=== PATIENT | female | born 1930 | race Caucasian/White ===

== ENCOUNTER 2016-11-02 15:59 | Inpatient (IN) ==
[2016-11-02] MEDS ORDERED: NS 1,000 ML IV ONE (16:32)
--- NOTE | 2016-11-02 16:52 | Diag Imaging Result Doc PS360 ---
EXAM: HIP W/PELVIS BILAT 2 VIEWS - 11/02/2016 HISTORY: fall TECHNIQUE: Bilateral hips and pelvis three views COMPARISON: None. FINDINGS: There is fracture through the base of the right femoral neck with mild foreshortening and varus deformity. There is no other fracture or dislocation identified. IMPRESSION: Fracture through the base of right femoral neck. Electronically signed by Raffaele Maza 11/02/2016 4:50 PM
--- NOTE | 2016-11-02 16:54 | Diag Imaging Result Doc PS360 ---
EXAM: FEMUR MIN 2 VIEWS RIGHT - 11/02/2016 HISTORY: fall TECHNIQUE: Right femur two views COMPARISON: None. FINDINGS: This exam includes the mid and distal right femur. The proximal right femur is included as part of the bilateral hips and pelvis exam. There is no evidence of fracture at the mid and distal femur. There are mild atherosclerotic calcifications noted. IMPRESSION: No evidence of fracture of the mid or distal right femur. Please see report of bilateral hips and pelvis exam for evaluation of the proximal right femur. Electronically signed by Raffaele Maza 11/02/2016 4:52 PM
--- NOTE | 2016-11-02 16:56 | Diag Imaging Result Doc PS360 ---
EXAM: CHEST-1 VIEW - 11/02/2016 HISTORY: fx hip TECHNIQUE: AP supine chest COMPARISON: None. FINDINGS: Heart size is normal. There is an air-containing retrocardiac density compatible with medium size hiatal hernia. The lungs appear clear. There is no pleural effusion or pneumothorax identified. IMPRESSION: Hiatal hernia. No evidence of acute disease. Electronically signed by Raffaele Maza 11/02/2016 4:53 PM
[2016-11-02 17:25] LABS: BASO% 0.2 % (0.0-0.8); EOS# 0.02 X1000 (0.0-0.7); EOS% 0.2 % (0.0-10.0); HEMATOCRIT 36.2 % (37.0-47.0); HEMOGLOBIN 11.7 g/dL (12.0-16.0); IMM GRAN# 0.04 X1000 (0.0-0.04); IMM GRAN% 0.3 % (0.0-0.5); LYMPH# 0.84 X1000 (1.2-3.4); LYMPH% 6.5 % (20.5-51.1); MANUAL DIFF NEEDED? NO; MCHC 32.3 g/dL (33-37); MCV 83.6 FL (81-99); MONO# 0.56 X1000 (0.11-0.59); MONO% 4.3 % (1.7-9.3); MPV 9.4 FL (7.4-10.4); NEUT% 88.5 % (42.2-75.2); PLT 221 X1000 (130-400); RBC 4.33 XMIL (4.2-5.4)
[2016-11-02 17:33] LABS: INR 1.04; PROTIME 10.9 Seconds (9.2-11.7); PTT 27.3 Seconds (22.0-36.0)
[2016-11-02 17:43] LABS: AGAP 13; ALBUMIN 3.9 g/dL (3.5-5.0); ALKALINE PHOSPHATASE 51 U/L (32-104); BUN 7 mg/dL (8-22); CALCIUM 8.5 mg/dL (8.8-10.2); CHLORIDE 99 mmol/L (98-107); CK PROFILE 94 U/L (24-173); COSMO 269; GOT 16 U/L (10-30); GPT 7 U/L (10-36); POTASSIUM 3.8 mmol/L (3.5-5.1); SODIUM 135 mmol/L (136-145); TCO2 23 mmol/L (25-35); TOTAL BILIRUBIN 0.69 mg/dL (0.20-1.00); TOTAL PROTEIN 7.1 g/dL (6.3-8.3)
--- NOTE | 2016-11-02 17:56 | PROVIDER DOCUMENTATION ---
This chart was entered by Moni Samayoa Scribe, acting as scribe for Lillian Ballesteros MD. HPI-Musculoskeletal Pain/Inj - GENERAL Chief Complaint: Fall Stated Complaint: right hip and femur pain secondary to fall Time Seen by Provider: 11/02/16 16:09 Source: patient, family (daughter) - HX OF PRESENT ILLNESS-MUSKULOSKELTAL Nature of Presenting Problem: Pt is 86 y/o F presents to the ED with R hip and leg pain. Pt's daughter states Pt fell this am. Pt denies head injury and LOC. Quality of Pain: reports: aching Severity in ED: mild Onset/Duration: this morning Timing: still present Modifying Factors: improves with: nothing Any recent injury?: Yes (fall ) Locality of Occurance: Home Similar Symptoms Previously?: No Recently seen or treated by another doctor?: No - FALL INJURY Location of Pain/Injury: reports: other (R hip and leg) Pain Radiation: reports: no radiation Reason for Fall: reports: lost balance Symptoms prior to fall:: reports: none Loss of Consciousness: no loss of consciousness Injury Associated Symptoms: reports: unable to bear weight, trouble walking. denies: arm pain, back/neck pain, chest pain, diaphoresis, dizziness, headaches , joint pain, muscle aches, nausea, puncture wound, shortness of breath, sensory /motor loss, snap/crack/pop sensation, pain with inspiration, vomiting, weakness - HIP/PELVIS PAIN/INJURY Hip Pain Location: reports: hip (R) Pain Radiation: reports: lower legs (R), upper legs (R) Context / Method of Injury: reports: fall Associated Symptoms: reports: weakness in legs/feet (R). denies: loss of bladder control, loss of bowel control, lower back pain, muscle spasms, numbness in legs/feet, sensory/motor loss, tingling in legs/feet Review of Systems - Adult - REVIEW OF SYSTEMS - ADULT Constitutional: reports: no symptoms reported Eyes: reports: no symptoms reported Ears, Nose, Mouth & Throat: reports: no symptoms reported Cardiovascular: reports: no symptoms reported Respiratory: reports: no symptoms reported Gastrointestinal: reports: no symptoms reported Genitourinary: reports: no symptoms reported Musculoskeletal: reports: other (R hip and leg pain). denies: back pain, neck pain Integumentary: reports: no symptoms reported Neurological: reports: no symptoms reported Psychiatric: reports: no symptoms reported Endocrine: reports: no symptoms reported Hematologic/Lymphatic: reports: no symptoms reported Allergic/Immunologic: reports: no symptoms reported All Other Systems: Reviewed and Negative Past History - Adult - PAST MEDICAL HISTORY-ADULT Review of Records: reports: Nursing Assessment Review, Medications Reviewed, Social history reviewed & non-contributory. Major Childhood Illnesses: reports: denies history Cardiovascular: reports: denies history Respiratory: reports: denies history Gastrointestinal: reports: denies history Obstetrical/Gynecological: reports: denies history Genitourinary: reports: denies history Musculoskeletal: reports: denies history Neurological: reports: denies history Endocrine/Immune: reports: thyroid disorder Other Conditions: reports: denies history - PRIOR SURGERIES/PROCEDURES Surgical/Procedure History: reports: cholecystectomy - IMMUNIZATION STATUS Childhood Immunizations: See Nurse Assessment Flu Vaccine: See Nurse Assessment - FAMILY HISTORY Family History: reviewed, not pertinent - SOCIAL HISTORY Smoking: denies Substance Use: denies Living Situation: family Physical Exam-Injury Related - Physical Exam-Injury Related Initial Vital Signs Reviewed: Yes General Appearance: appears well, alert, no apparent distress Eyes: PERRL/EOMI, pink conjunctivae Head, Ears, Nose, Mouth & Throat: normocephalic/atraumatic, moist mucous membranes, normal ENT inspection Neck: non-tender, full range of motion, supple, normal inspection Respiratory: chest non-tender, lungs clear, normal breath sounds Cardiovascular: normal peripheral pulses, regular rate, rhythm Abdominal Exam: normal bowel sounds, non tender, soft Lymphatic: no adenopathy Back Exam: normal inspection Extremity: tenderness (R hip). negative: deformity, erythema, swelling Integumentary: normal color, warm/dry Neurologic: grossly normal Psych/Mental Status: normal mood/affect, oriented x 3 Progress - PLAN OF CARE/RESULTS Progress/Plan/Lab Results: Vital Signs - 8 hr 11/02/16 16:09 11/02/16 17:16 Temperature 98.7 F Pulse Rate 78 78 Respiratory Rate 18 20 Blood Pressure 167/86 O2 Sat by Pulse Oximetry 92 L 92 L Laboratory Results - last 24 hr 11/02/16 11/02/16 11/02/16 17:00 17:00 17:00 WBC 12.91 H RBC 4.33 Hgb 11.7 L Hct 36.2 L MCV 83.6 MCH 27.0 MCHC 32.3 L RDW Std Deviation 14.9 H Plt Count 221 MPV 9.4 Immature Gran % (Auto) 0.3 Neut % (Auto) 88.5 H Lymph % (Auto) 6.5 L [place] % (Auto) 4.3 Eos % (Auto) 0.2 Baso % (Auto) 0.2 Immature Gran # (Auto) 0.04 Neut # (Auto) 11.43 H Lymph # (Auto) 0.84 L [place] # (Auto) 0.56 Eos # (Auto) 0.02 Baso # (Auto) 0.02 PT INR PTT (Actin FS) Sodium 135 L Potassium 3.8 Chloride 99 Carbon Dioxide 23 L Anion Gap 13 BUN 7 L Creatinine 0.7 Estimated GFR/1.73 m2 > 60 BUN/Creatinine Ratio 10 Glucose 111 H Calculated Osmolality 269 Calcium 8.5 L Magnesium 2.0 Total Bilirubin 0.69 AST 16 ALT 7 L Alkaline Phosphatase 51 Creatine Kinase 94 Troponin T Iye-H-Ofzdooqrnum Pept 307 Total Protein 7.1 Albumin 3.9 Globulin 3.2 Albumin/Globulin Ratio 1.2 11/02/16 11/02/16 17:00 17:00 WBC RBC Hgb Hct MCV MCH MCHC RDW Std Deviation Plt Count MPV Immature Gran % (Auto) Neut % (Auto) Lymph % (Auto) [place] % (Auto) Eos % (Auto) Baso % (Auto) Immature Gran # (Auto) Neut # (Auto) Lymph # (Auto) [place] # (Auto) Eos # (Auto) Baso # (Auto) PT 10.9 INR 1.04 PTT (Actin FS) 27.3 Sodium Potassium Chloride Carbon Dioxide Anion Gap BUN Creatinine Estimated GFR/1.73 m2 BUN/Creatinine Ratio Glucose Calculated Osmolality Calcium Magnesium Total Bilirubin AST ALT Alkaline Phosphatase Creatine Kinase Troponin T < 0.010 Epx-O-Kxrhzrztyxe Pept Total Protein Albumin Globulin Albumin/Globulin Ratio Orders Category Date Time Status Cardiac Monitoring DIRECTED Care 11/02/16 16:31 Active Saline Loc NOW Care 11/02/16 16:31 Active CHEST-1 VIEW [RAD] Stat Exams 11/02/16 16:31 Completed FEMUR MIN 2 VIEWS RIGHT [RAD] Stat Exams 11/02/16 16:17 Completed HIP W/PELVIS BILAT 2 VIEWS [RAD] Stat Exams 11/02/16 16:16 Completed CBC WITH ELECTRONIC DIFF [HEME] Stat Lab 11/02/16 17:00 Completed CK PROFILE [SP CHEM] Stat Lab 11/02/16 17:00 Completed COMPREHENSIVE METABOLIC PANEL [CHEM] Stat Lab 11/02/16 17:00 Completed MAGNESIUM [CHEM] Stat Lab 11/02/16 17:00 Completed PRO B-NATRIURETIC PEPTIDE Stat Lab 11/02/16 17:00 Completed PROTIME WITH INR [COAG] Stat Lab 11/02/16 17:00 Completed PTT [COAG] Stat Lab 11/02/16 17:00 Completed TROPONIN T Stat Lab 11/02/16 17:00 Completed UA NIMS W/REFLEX CULT [URINALYSIS] Stat Lab 11/02/16 16:31 Uncollected 0.9% Sodium Chloride Inj [Ns] 1,000 ml Med 11/02/16 16:32 Active IV 125 mls/hr EKG [EKG] Stat Ther 11/02/16 16:31 Ordered Result Diagrams: 11/02/16 17:00 11/02/16 17:00 - EKG 1 Time of EKG reading by physician:: 16:41 EKG Read and Signed by:: Lillian Ballesteros EKG Interpretation (*Must complete 3 of following elements*): Abnormal (rhythm - sinus rhythm with 1st degree AV block with frequent premature ventricular complexes) Rate: 80 Comments: otherwise normal ECG - XRAY 1 XRAY: Right XRAY Study: Femur Impression: Abnormal (no evidence of fracture of the mid to distal right femur. please see report of bilateral hips and pelvis exam for evaluation of proximal right femur.) 2 XRAY Study: Pelvis, Hip Impression: Abnormal XRAY Interpretation: fracture through the base of right femoral neck - CONSULTS/PCP/HOSPITALIST Notification #1 *Consult/PCP/Hospitalist*: Dr. Araya Time Discussed: 17:56 Consult Disposition: Will see in ED, Admit Departure - Departure Date of Disposition Decision: 11/02/16 Time of Disposition Decision: 17:03 DIAGNOSIS: Closed right hip fracture Disposition: ADMITTED INPATIENT 09 Certified Medical Emergency: Emergent Condition: Stable Referrals and Follow-Ups: None,PCP [Primary Care Provider] - - Critical Care Note This patient required my direct & personal management of CC.: No This chart was documented by the indicated scribe, (Yao,Moni, Scribe) and accurately reflects the services I performed and decisions made by me, Lillian Ballesteros MD, as attested by the provider's signature.
[2016-11-02 18:29] LABS: URINE MICRO REVIEW NEEDED? NO; URINE SOURCE CLEAN CATCH
[2016-11-02 18:32] LABS: BILIRUBIN URINE NEGATIVE (NEGATIVE); BLOOD URINE NEGATIVE (NEGATIVE); COLOR YELLOW; GLUCOSE URINE NEGATIVE (NEGATIVE); LEUKOCYTES URINE TRACE (NEGATIVE); NITRITE URINE POSITIVE (NEGATIVE); PROTEIN URINE NEGATIVE (NEGATIVE); SP GRAVITY URINE 1.011; TURBIDITY URINE HAZY (CLEAR); UROBILINOGEN URINE NORMAL (NORMAL)
[2016-11-02 18:33] LABS: UR EPITHELIAL CELLS <10 /HPF (<10); URINE BACTERIA 4+ /HPF; URINE CULTURE NEEDED? YES; URINE RBC <10 /HPF (<10)
--- NOTE | 2016-11-02 19:06 | HISTORY AND PHYSICAL ---
PRIMARY CARE DOCTOR: None. HISTORY OF PRESENT ILLNESS: This is a very pleasant 86-year-old female with past medical history of hypothyroidism who was brought to the emergency department because of fall. Apparently, she was in the bed while she was trying to get out and moving her blankets around, she had a fall. She reports no noticed loss of consciousness. She denies any involuntary movements, any sphincter relaxation. The patient called daughter, who called ambulance and patient was brought here. X-ray revealed right hip fractures, so we were called for admission. PAST MEDICAL HISTORY: 1. Hypothyroidism. 2. History of recurrent dizziness. PAST SURGICAL HISTORY: Cholecystectomy 15 years ago. RECENT MEDICATIONS: 1. Levothyroxine 100 mg p.o. daily. 2. Meclizine 12.5 mg p.o. q.4 hours as needed for vertigo. ALLERGIES: None. SOCIAL HISTORY: She denies drinking alcohol, using tobacco or abusing drugs. Patient lives by herself. REVIEW OF SYSTEMS: Eleven systems were reviewed and all symptoms are related to history and physical. PHYSICAL EXAMINATION: VITALS: Temperature 98.7 degrees, heart rate 82, respiratory rate 18, blood pressure 162/80, O2 saturation 95% on room air. GENERAL EXAMINATION: This is a very pleasant 86-year-old female lying in bed, in no acute distress. HEENT: Head is normocephalic and atraumatic. Anicteric sclerae. Mucous membranes moist. NECK: Supple. No JVD. No carotid bruits. No lymphadenopathy. No thyromegaly. CARDIOVASCULAR: S1, S2 heard. No murmurs, gallops, or rubs. Regular rate and rhythm. RESPIRATORY: Clear bilaterally to auscultation. No work of breathing or using accessory muscles. ABDOMEN: Soft, nontender to palpation. Bowel sounds present. No organomegaly. EXTREMITIES: No clubbing, cyanosis, or edema. There is a mild shortening of the right lower extremity with some external rotation. NEUROLOGICAL: Patient is alert and oriented x3. Able to move 4 extremities. Cranial nerves 2-12 grossly normal. LABORATORY DATA: White cell count 12.91, hemoglobin 11.7, hematocrit 36.2, platelets 221,000. BMP was unremarkable as well as hepatic function tests and urine exam is positive for nitrates. ASSESSMENT AND PLAN: 1. Right hip fracture. 2. Hypothyroidism. 3. Suspected urinary tract infection. 4. Patient is going to be admitted to the hospital for this right hip fracture. We are going to consult Orthopedics electronic equipment trades worker. In the meantime, we will provide IV fluids. For hypothyroidism, we are going to check thyroid stimulating hormones because according to the family, the patient has not been complaining for her medications. In any case, we prefer to restart that medication daily and for urinary tract infection, she reports not complaining of any pain when she urinates, so at this point, I prefer to see the results of the urine culture. We will provide also IV fluids. 5. Further recommendations to follow according to the clinical situation of the patient. cc: Christofer Zhong MD
[2016-11-02] MEDS ORDERED: ZOFRAN IV PRN (19:31)
[2016-11-02] MEDS: MORPHINE IV PRN (20:05)
[2016-11-02] MEDS ORDERED: BENADRYL PO ONE (22:27)
[2016-11-02] MEDS: NORCO-7.5 PO PRN (22:40)
[2016-11-03] MEDS ORDERED: PNEUMOVAX 23 IM ONE (00:30)
[2016-11-03] MEDS ORDERED: NS 1,000 ML ONE ×2 (03:37→18:06)
[2016-11-03 05:31] LABS: MANUAL DIFF NEEDED? NO
[2016-11-03 05:34] LABS: BASO% 0.2 % (0.0-0.8); EOS# 0.13 X1000 (0.0-0.7); EOS% 1.5 % (0.0-10.0); HEMATOCRIT 34.1 % (37.0-47.0); HEMOGLOBIN 10.8 g/dL (12.0-16.0); IMM GRAN# 0.02 X1000 (0.0-0.04); IMM GRAN% 0.2 % (0.0-0.5); LYMPH# 1.56 X1000 (1.2-3.4); LYMPH% 18.1 % (20.5-51.1); MCH 26.8 PG (27-31); MCHC 31.7 g/dL (33-37); MCV 84.6 FL (81-99); MONO# 0.54 X1000 (0.11-0.59); MONO% 6.3 % (1.7-9.3); MPV 9.4 FL (7.4-10.4); NEUT% 73.7 % (42.2-75.2); PLT 197 X1000 (130-400); RBC 4.03 XMIL (4.2-5.4)
[2016-11-03 06:01] LABS: AGAP 10; BUN 7 mg/dL (8-22); CALCIUM 8.4 mg/dL (8.8-10.2); CHLORIDE 103 mmol/L (98-107); COSMO 273; POTASSIUM 4.3 mmol/L (3.5-5.1); SODIUM 138 mmol/L (136-145); TCO2 25 mmol/L (25-35)
[2016-11-03] MEDS: PRILOSEC PO SCH (06:10)
[2016-11-03] MEDS ORDERED: SYNTHROID PO SCH (07:00)
--- NOTE | 2016-11-03 11:45 | PROGRESS NOTE ---
DATE: 11/03/2016 SUBJECTIVE: Patient reports feeling fine. Mild pain around the right hip. No fever or chills reported. Mild burning on urination. OBJECTIVE: Vital Signs: Temperature 98 degrees, heart rate 71, respiratory rate 15, blood pressure 156/68, O2 saturation 91% on room air. General Examination: This is a very pleasant, 86- year-old, female lying in bed, in no acute distress. HEENT: Head is normocephalic and atraumatic. Anicteric sclerae and pale conjunctivae. Mucous membranes moist. Neck: Supple. No JVD noted. No carotid bruits. No lymphadenopathy. No thyromegaly. Cardiovascular Examination: S1 and S2 heard. No murmurs, gallops, or rubs. Regular rate and rhythm. Respiratory Examination: Clear bilaterally to auscultation. No work of breathing or using accessory muscles. Abdomen: Soft, nontender to palpation. Bowel sounds present. No organomegaly. Extremities: No clubbing, cyanosis, or edema. Peripheral pulses present in both legs. Neurologic Examination: Patient is alert and oriented x3. Able to move 4 extremities. Cranial nerves 2-12 grossly normal. Laboratory Data: The CBC shows a hemoglobin of 10.8, hematocrit 34.1. BMP unremarkable. Urine culture growing gram-negative growth. TSH 46. ASSESSMENT AND PLAN: 1. Right hip fracture. Orthopedic evaluation is still pending at the time of my dictation. We will see what Dr. Albarado has to say today. 2. Hypothyroidism. As per the daughter, the patient is not taking her medication that she is supposed to. Most of the time, she is keeping some doses. TSH is very high at 46 so at this time, we prefer to increase a little bit the doses of levothyroxine from 100 to 110 mcg. We will check TSH at least after 1 and 2 weeks. 3. Urinary tract infection. Urine culture showed gram negative cocci so we prefer to start treatment with ceftriaxone 1 g intravenous every 24 hours and we will go from there. cc: Christofer Zhong MD
[2016-11-03] MEDS: ROCEPHIN 1 GM/NS 1 GM/50 ML IVPB IV SCH (13:12)
[2016-11-03] MEDS: MORPHINE IV PRN (13:14)
[2016-11-03] MEDS: SYNTHROID PO SCH (13:15)
--- NOTE | 2016-11-03 13:31 | CONSULTATION ---
DATE OF CONSULTATION: 11/03/2016 CONSULTING PHYSICIAN: Keaton Albarado MD ADMITTING PHYSICIAN: Christofer Zhong MD CHIEF COMPLAINT: Right hip pain. HISTORY OF PRESENT ILLNESS: Ms. Duran is an 86-year-old white female who has experienced right hip pain and inability to bear weight status post mechanical fall at her home yesterday. She was brought to the emergency department by ambulance and radiographic examination was undertaken which revealed findings consistent with a right intratrochanteric hip fracture. PRIMARY CARE PROVIDER: None. ALLERGIES: No known drug allergies. PAST MEDICAL HISTORY: 1. Hypothyroidism. 2. Osteoarthritis. 3. Allergic rhinitis. PAST SURGICAL HISTORY: Cholecystectomy. SOCIAL HISTORY: The patient is a . She maintains her home. She is a nonsmoker. She does have a history of recent falls which have resulted in no serious injury. HOME MEDICATIONS: 1. Cetirizine 10 mg daily. 2. Meclizine 25 mg as necessary. 3. Synthroid 100 mcg by mouth daily. REVIEW OF SYSTEMS: HEENT: The patient has a history of hypothyroidism. No known history of stroke or cerebrovascular disease. Cardiac: No history of coronary artery disease or valvular heart disease. Denies chest pain, pressure, or other anginal equivalents. Pulmonary: The patient is a nonsmoker with no reported lung disease. Gastrointestinal: No recent nausea, vomiting, diarrhea, or constipation. Genitourinary: Denies kidney or bladder infection. Neurologic: Denies extremity radicular pain, weakness, or paresthesia. Musculoskeletal: She is here for management of a right hip fracture. PHYSICAL EXAMINATION: The patient is resting comfortably on the bed. She is articulate and able to answer all questions fully. HEENT: Head is normocephalic and atraumatic. Pupils are equal, round and react to light. Nares are patent. Throat without exudate. Neck: Supple. Heart: Regular rate and rhythm. No murmurs, gallops or rubs. Lungs: Clear to auscultation bilaterally. Abdomen: Round. Bowel sounds are present. The abdomen is nontender. Genitourinary: She has a Vega catheter in place. Neurologic: Gross motor function is intact as well as sensation to soft touch. Musculoskeletal: Right hip: No gross deformity, edema, or ecchymosis is noted. She has good peripheral pulse. IMPRESSION: Right intratrochanteric hip fracture. PLAN: Right trochanteric fixation now. The risks and benefits of surgery were explained to the patient including the risk of anesthesia, , bleeding, infection, damage to tendons, ligaments, nerves, blood vessels, the possibility of bleeding and blood clots were discussed as well as other imponderables, and she wishes to proceed with operative management at this time. Dictated by SALVADOR [place] for Keaton Albarado MD cc: SALVADOR [place] MD
[2016-11-03] MEDS ORDERED: CALMOSEPTINE OINTMENT TOP PRN (18:58)
[2016-11-03] MEDS: AMBIEN PO SCH (21:38)
[2016-11-03] MEDS: NORCO-7.5 PO PRN (23:51)
[2016-11-04 05:43] LABS: MANUAL DIFF NEEDED? NO
[2016-11-04 05:49] LABS: BASO% 0.2 % (0.0-0.8); EOS# 0.28 X1000 (0.0-0.7); EOS% 3.3 % (0.0-10.0); HEMATOCRIT 32.2 % (37.0-47.0); HEMOGLOBIN 10.1 g/dL (12.0-16.0); IMM GRAN# 0.02 X1000 (0.0-0.04); IMM GRAN% 0.2 % (0.0-0.5); LYMPH% 16.4 % (20.5-51.1); MCH 26.5 PG (27-31); MCHC 31.4 g/dL (33-37); MCV 84.5 FL (81-99); MPV 9.7 FL (7.4-10.4); NEUT% 72.9 % (42.2-75.2); PLT 177 X1000 (130-400); RBC 3.81 XMIL (4.2-5.4)
[2016-11-04 06:11] LABS: AGAP 10; BUN 5 mg/dL (8-22); CALCIUM 8.4 mg/dL (8.8-10.2); CHLORIDE 103 mmol/L (98-107); COSMO 270; POTASSIUM 3.6 mmol/L (3.5-5.1); SODIUM 137 mmol/L (136-145); TCO2 24 mmol/L (25-35)
[2016-11-04] MEDS: MORPHINE IV PRN (06:25)
[2016-11-04] MEDS: PRILOSEC PO SCH (07:30)
[2016-11-04] MEDS: SYNTHROID PO SCH (07:30)
[2016-11-04] MEDS ORDERED: LR 1,000 ML IV SCH (10:04)
[2016-11-04] MEDS ORDERED: SYNTHROID PO SCH (10:14)
[2016-11-04] MEDS: ROCEPHIN 1 GM/NS 1 GM/50 ML IVPB IV SCH (10:30)
[2016-11-04] MEDS ORDERED: AMIDATE ONE (13:32)
[2016-11-04] MEDS ORDERED: KEFZOL 1 GM/D5W 1 GM/50 ML IVPB ONE (14:13)
[2016-11-04] MEDS ORDERED: DECADRON ONE (15:09)
[2016-11-04] MEDS ORDERED: ZOFRAN ONE (15:09)
--- NOTE | 2016-11-04 15:28 | EKG Report ---
Test Performed on : 11/04/2016 2:22:52 PM Test Reason : dr ordered Blood Pressure : / mmHG Vent. Rate : 089 BPM Atrial Rate : 089 BPM P-R Int : 206 ms QRS Dur : 086 ms QT Int : 394 ms P-R-T Axes : 023 -10 011 degrees QTc Int : 479 ms Normal sinus rhythm. Possible Anterior infarct (cited on or before 04-NOV-2016) Abnormal ECG When compared with ECG of 04-NOV-2016 14:22, (Unconfirmed) No significant change was found Confirmed by Arian Irizarry MD ([id number]) on 11/04/2016 4:41:12 PM
--- NOTE | 2016-11-04 16:43 | PROGRESS NOTE ---
DATE: 11/04/2016 SUBJECTIVE: Today Ms. Duran refers to be doing fine except that she complained of some pain in the right hip. The patient is pending surgery. OBJECTIVE: Vital signs: Blood pressure is 151/71, pulse of 80, respiration is 16, temperature is 98.7 degrees. General Exam: Ms. Duran is an 86-year-old, female. She was in bed. Not seemingly distressed. HEENT: Mucosa is pink and moist. Anicteric. Acyanotic. Neck: Supple. Chest: Good air entry bilaterally. No crepitations. No rhonchi. Cardiovascular: Regular rate and rhythm. Abdomen: Soft. Extremities: No pedal edema. The right hip and the right lower extremity has external rotation. LABORATORY DATA: WBC is 8.51, hemoglobin is 10.1, platelet count of 177,000. Chemistry is seen, sodium is 137, potassium is 3.6, chloride is 103, bicarb is 24. A TSH was 46.51. ASSESSMENT: 1. Right femoral neck fracture. The patient has been evaluated by Orthopedics and is pending surgery today. 2. Hypothyroidism with very elevated TSH consistent with inadequate supplementation. Levothyroxine has been increased. We are just going to observe. 3. Escherichia coli urinary tract infection. We will continue with the current antibiotics. 4. Hyponatremia. Improved. So today Ms. Duran continues to be stable. We are going to continue with the current antibiotics. Patient will be pending surgery. We will re-evaluate her in the morning and start her planning with Social Work for possible inpatient rehabilitation. cc: Julien Massey MD
[2016-11-04] MEDS ORDERED: NS 1,000 ML ONE (17:11)
--- NOTE | 2016-11-04 17:25 | OPERATIVE NOTE ---
PROCEDURE DATE: 11/04/2016 PREOPERATIVE DIAGNOSIS: Base of the neck right hip fracture. POSTOPERATIVE DIAGNOSIS: Base of the neck right hip fracture. PROCEDURE: Closed reduction, trochanteric fixation nail right hip. SURGEON: Keaton Albarado MD. SENIOR COMMISSARY AGENT: SALVADOR [place]. ANESTHESIA: General. COMPLICATION: None. PROCEDURE IN DETAIL: This 86-year-old female presents for surgical reduction of a hip. Risks, benefits, and no guarantees were discussed. She is willing to proceed. She was taken the operating room and satisfactory anesthesia obtained. The right hip was prepped and draped in usual sterile fashion. A time-out was taken to confirm operative site, procedure, and patient. She was placed on the [place] table in gentle internal rotation and traction was utilized to reduce the femoral neck fracture anatomically. After ensuring a proper time-out and prepped and draped, the surgical site was incised along the lateral aspect of the hip just lateral and above the greater trochanter. Dissection was carried down to the tip of the greater trochanter. The tip of the trochanter was then placed with an entry guide pin and this was fluoroscopically placed down the intramedullary canal. This was reamed with the entry reamer. A ball-tipped guidewire was down the shaft afterwards and the shaft reamed with a 12 mm reamer. A 360 length x 11 diameter TF nail was then inserted over the guidewire and the guidewire removed. An accessory lateral incision was made for placement of the helical blade. The guides were advanced down to the bone and a guide pin placed in the central aspect of the femoral head and across the fracture and the central aspect of the femoral neck under multiplanar image guidance. A 90 length helical blade was selected and inserted over the guidewire with secure proximal fixation. Care was taken to remove the proximal guides in the C-arm was used to verify proximal fixation as well as closing down the gap of the base of the neck fracture. Alignment was then adjusted on the table to the toes, patella, and ASIS in alignment and distal locking through a dynamic slot achieved through a small accessory lateral incision using fluoroscopic guidance. A 44 length screw was placed here. The C-arm was used to verify accurate fracture reduction. Afterwards, the wounds were irrigated and closed in layers with 2-0 Vicryl, and skin catarina. Sterile dressings were placed. The patient was then recovered from anesthesia and transferred to recovery room in stable condition. No intraoperative complications were noted. Instrument count and sponge count was correct at time of closure. cc: Keaton Albarado MD
[2016-11-04] MEDS ORDERED: HALDOL IV PRN (18:15)
[2016-11-04] MEDS ORDERED: ZOFRAN IV PRN (18:15)
[2016-11-04] MEDS ORDERED: MORPHINE IV PRN ×2 (18:15→19:25)
[2016-11-04] MEDS ORDERED: MILK OF MAGNESIA PO PRN (18:15)
[2016-11-04] MEDS ORDERED: NS 1,000 ML IV SCH (19:00)
[2016-11-04] MEDS: AMBIEN PO SCH (21:43)
[2016-11-04] MEDS: COLACE PO SCH (22:55)
[2016-11-04] MEDS: PERIDEX MT SCH (22:55)
[2016-11-04] MEDS: KEFZOL 1 GM/D5W 1 GM/50 ML IVPB IV SCH (23:48)
[2016-11-05 05:51] LABS: MANUAL DIFF NEEDED? NO
[2016-11-05 05:58] LABS: BASO% 0.2 % (0.0-0.8); EOS# 0.01 X1000 (0.0-0.7); EOS% 0.1 % (0.0-10.0); HEMATOCRIT 33.3 % (37.0-47.0); HEMOGLOBIN 10.7 g/dL (12.0-16.0); IMM GRAN# 0.04 X1000 (0.0-0.04); IMM GRAN% 0.4 % (0.0-0.5); LYMPH# 0.95 X1000 (1.2-3.4); LYMPH% 8.5 % (20.5-51.1); MCH 27.1 PG (27-31); MCHC 32.1 g/dL (33-37); MCV 84.3 FL (81-99); MONO# 0.72 X1000 (0.11-0.59); MONO% 6.4 % (1.7-9.3); MPV 9.8 FL (7.4-10.4); NEUT% 84.4 % (42.2-75.2); PLT 216 X1000 (130-400); RBC 3.95 XMIL (4.2-5.4)
[2016-11-05 06:25] LABS: AGAP 20; BUN 8 mg/dL (8-22); CALCIUM 8.3 mg/dL (8.8-10.2); CHLORIDE 98 mmol/L (98-107); COSMO 266; POTASSIUM 4.2 mmol/L (3.5-5.1); SODIUM 134 mmol/L (136-145); TCO2 16 mmol/L (25-35)
[2016-11-05] MEDS: TYLENOL PO SCH ×3 (06:39→17:03)
[2016-11-05] MEDS: PRILOSEC PO SCH (06:41)
[2016-11-05] MEDS: KEFZOL 1 GM/D5W 1 GM/50 ML IVPB IV SCH (06:42)
[2016-11-05] MEDS: SYNTHROID PO SCH (06:42)
[2016-11-05] MEDS: OXY IR PO PRN ×2 (06:43→21:09)
[2016-11-05] MEDS ORDERED: XARELTO PO ONE (07:04)
[2016-11-05] MEDS: FERROUS SULFATE PO SCH (09:18)
[2016-11-05] MEDS: PERIDEX MT SCH ×2 (09:18→21:09)
[2016-11-05] MEDS: ROCEPHIN 1 GM/NS 1 GM/50 ML IVPB IV SCH (13:29)
--- NOTE | 2016-11-05 16:26 | PROGRESS NOTE ---
DATE: 11/05/2016 SUBJECTIVE: Today Ms. Duran refers to be doing better. Still has mild pain in the right hip. OBJECTIVE: Vital Signs: Stable. Blood pressure is 93/63, pulse of 94, respirations 16, temperature 98.0 degrees. General: Ms. Duran is an 86-year-old, female. She is in bed. She is not in any distress. HEENT: Mucosa is pink and moist. Anicteric. Acyanotic. Neck: Supple. Chest: Clear. Cardiovascular: Regular rate and rhythm. Abdomen: Soft. Extremities: No pedal edema. The right lower extremity is slightly externally rotated. There is a new dressing over the left lateral thigh which is consistent with the surgery. LABORATORY DATA: WBC is 11.22, hemoglobin is 10.7, platelet count of 216,000. Chemistry is reviewed. Sodium is 134. The rest of the chemistry is normal. ASSESSMENT: 1. Right femoral neck fracture status post close reduction and trochanteric fixation with nail. Today is day 1 postop. Patient seems to be doing remarkably fine. 2. Hypothyroidism with elevated thyroid stimulating hormone consistent with inadequate supplementation. Levothyroxine has been increased. 3. Escherichia coli urinary tract infection. Patient is currently on antibiotics. 4. Hyponatremia. This has gotten a little bit worse than yesterday. We are just going to keep eye on this. PLAN: In general I think Ms. Duran is relatively stable. We will get physical therapy to start working with her. I think the long-term plan will be to get her to a rehab facility. Patient has been started rivaroxaban for DVT prophylaxis after orthopedic surgery. cc: Julien Massey MD
--- NOTE | 2016-11-05 16:54 | PROGRESS NOTE ---
DATE: 11/05/2016 Ms. Duran is seen today for followup status post fixation of her hip. At the present time, she is afebrile with stable vital signs. The incision and bandage are clean and dry. There are no signs of DVT or active bleeding. She can be mobilized as tolerated. We will see back for further care. cc: Keaton Albarado MD
[2016-11-05] MEDS: COLACE PO SCH (21:09)
[2016-11-05] MEDS: AMBIEN PO SCH (21:09)
[2016-11-06] MEDS: TYLENOL PO SCH ×3 (01:00→16:24)
[2016-11-06 05:40] LABS: MANUAL DIFF NEEDED? NO
[2016-11-06 05:47] LABS: BASO% 0.3 % (0.0-0.8); EOS# 0.32 X1000 (0.0-0.7); EOS% 2.8 % (0.0-10.0); HEMATOCRIT 31.9 % (37.0-47.0); HEMOGLOBIN 10.3 g/dL (12.0-16.0); IMM GRAN# 0.04 X1000 (0.0-0.04); IMM GRAN% 0.3 % (0.0-0.5); LYMPH# 2.17 X1000 (1.2-3.4); LYMPH% 18.7 % (20.5-51.1); MCHC 32.3 g/dL (33-37); MCV 83.5 FL (81-99); MONO# 0.75 X1000 (0.11-0.59); MONO% 6.5 % (1.7-9.3); MPV 9.7 FL (7.4-10.4); NEUT% 71.4 % (42.2-75.2); PLT 215 X1000 (130-400); RBC 3.82 XMIL (4.2-5.4)
[2016-11-06 06:21] LABS: CALCIUM 8.5 mg/dL (8.8-10.2); POTASSIUM 4.4 mmol/L (3.5-5.1)
[2016-11-06] MEDS: XARELTO PO SCH (06:38)
[2016-11-06] MEDS: SYNTHROID PO SCH (06:38)
[2016-11-06] MEDS: PRILOSEC PO SCH (06:38)
[2016-11-06] MEDS: OXY IR PO PRN ×2 (06:38→21:16)
[2016-11-06] MEDS: PERIDEX MT SCH ×2 (09:12→21:16)
[2016-11-06] MEDS: FERROUS SULFATE PO SCH (09:12)
--- NOTE | 2016-11-06 11:38 | PROGRESS NOTE ---
DATE: 11/06/2016 SUBJECTIVE: Ms. Duran is seen today for a followup, status post hip fixation of her right hip. She is stable with stable vital signs. Her incisions are all clean and dry. There are no obvious postoperative complications. She can be transferred to the rehab center by the hospitalist at this point in time when convenient. DISCHARGE INSTRUCTIONS: Partial weightbearing on the right lower extremity. Ar removed in 10 days. Follow up with Dr. Albarado in 3 to 4 weeks for an x-ray. cc: Keaton Albarado MD
[2016-11-06] MEDS: ROCEPHIN 1 GM/NS 1 GM/50 ML IVPB IV SCH (11:57)
[2016-11-06] MEDS: COLACE PO SCH (21:16)
[2016-11-06] MEDS: AMBIEN PO SCH (21:16)
[2016-11-07 05:51] LABS: MANUAL DIFF NEEDED? NO
[2016-11-07 05:59] LABS: BASO% 0.4 % (0.0-0.8); EOS# 0.31 X1000 (0.0-0.7); EOS% 3.2 % (0.0-10.0); HEMATOCRIT 30.7 % (37.0-47.0); IMM GRAN# 0.05 X1000 (0.0-0.04); IMM GRAN% 0.5 % (0.0-0.5); LYMPH# 1.88 X1000 (1.2-3.4); LYMPH% 19.7 % (20.5-51.1); MCHC 32.6 g/dL (33-37); MONO# 0.65 X1000 (0.11-0.59); MONO% 6.8 % (1.7-9.3); MPV 9.8 FL (7.4-10.4); NEUT% 69.4 % (42.2-75.2); PLT 230 X1000 (130-400)
[2016-11-07] MEDS ORDERED: MORPHINE IV PRN (07:31)
[2016-11-07] MEDS: XARELTO PO SCH (07:46)
[2016-11-07] MEDS: TYLENOL PO SCH (07:46)
[2016-11-07] MEDS: PRILOSEC PO SCH (07:46)
[2016-11-07] MEDS: SYNTHROID PO SCH (07:46)
[2016-11-07] MEDS: FERROUS SULFATE PO SCH (08:17)
[2016-11-07] MEDS: PERIDEX MT SCH (08:18)
[2016-11-07] MEDS: ROCEPHIN 1 GM/NS 1 GM/50 ML IVPB IV SCH ×2 (10:36→11:09)
--- NOTE | 2016-11-07 12:02 | DISCHARGE SUMMARY ---
ADMISSION DATE: 11/02/2016 DISCHARGE DATE: 11/07/2016 CONSULTATIONS: Dr. Albarado with Orthopedics. PERTINENT PROCEDURES: A closed reduction and trochanteric fixation nail right hip. DISCHARGE DIAGNOSES: 1. Right femoral neck fracture status post closed reduction and trochanteric fixation with nailing. Patient being discharged to rehab. 2. Hypothyroidism with elevated TSH consistent with inadequate supplementation. Her Synthroid has been increased. 3. Escherichia coli urinary tract infection. Continue p.o. antibiotics. 4. Hyponatremia, improved. HOSPITAL COURSE: Ms. Duran is an 86-year-old female with a past medical history of hypothyroidism brought to the ED status post fall. She was trying to get out from around her blankets and fell. She reported no loss of consciousness. X-rays revealed a right hip fracture. Her urinalysis was suspicious for a UTI. She is admitted with an ortho consult. She did undergo a closed reduction trochanteric fixation nailing of the right hip by Dr. Albarado. She was started on IV antibiotics for her UTI. She did have an elevated TSH for which her Synthroid medication was increased. The patient has worked with physical therapy. She is appropriate for discharge to rehab today. VITAL SIGNS: Temperature is 98.7 degrees, heart rate 92, respirations 20, blood pressure 145/85, O2 is 97% on room air. DISCHARGE DIET: GI soft. DISCHARGE MEDICATIONS: As per Dr. Massey. FOLLOWUP: The patient is being discharged to [place]. She will be partial weightbearing to the right lower extremity. Her catarina should be removed in 10 days and follow up with Dr. Albarado for x-rays in 3-4 weeks. The patient can return to the ED for any worsening of symptoms. DISCHARGE TIME: 30 minutes. Dictated by GOKUL Ziegler for Julien Massey MD cc: Julien Massey MD
[2016-11-07] MEDS: OXY IR PO PRN (15:13)
[2016-11-07 15:58] VITALS: BP 129/78
[2016-11-07] MEDS ORDERED: KEFLEX LIQUID PO SCH (21:00)
[2016-11-07] MEDS ORDERED: KEFLEX PO SCH (21:00)
== END 2016-11-07 16:31 ==
LOC: ED 15:59 → 4N 18:51 → SUATTDRO 18:51
PROVIDERS: ATTEND Internal Medicine